=== PATIENT | male | born 1960 | race Caucasian/White ===

== ENCOUNTER → 2018-12-25 | Outpatient (CLI) | payer MEDICARE, BC | END | disposition home or self-care (01) | LOC: PCVCCLINIC 14:59 | PROVIDERS: ATTEND Internal Medicine | DX: I25.10 Atherosclerotic heart disease of native coronary artery without angina pectoris (principal); J41.0 Simple chronic bronchitis; E78.5 Hyperlipidemia, unspecified; R06.09 Other forms of dyspnea; Z79.82 Long term (current) use of aspirin | CPT/HCPCS: G0463 ==